=== PATIENT | female | born 1965 | race Native Hawaiian/Other Pacific Islander ===

== ENCOUNTER 2017-01-29 19:17 | Emergency (ER) | payer OTHER ==
--- NOTE | 2017-01-29 19:23 | C.PDOC ---
History Of Present Illness Patient presents to the ED with complaints of severe left lateral ankle and foot pain after falling 2-3 hours prior preparing to go to work. Patient describes pain as sharp and stabbing, she denies any LOC, head trauma, or any other complaints at this time. Time Seen by Provider: 01/29/17 19:22 History Per: Patient History/Exam Limitations: no limitations Onset/Duration Of Symptoms: Hrs Current Symptoms Are (Timing): Still Present Severity: Mild Pain Scale Rating Of: 4 Recent travel outside of the [place]: No Additional History Per: Patient - Ankle/Foot Description Of Injury: Fell Currently Unable To: Bear Weight Alleviating Factor(s): Ice Therapy, Elevation, OTC Pain Medication Past Medical History Reviewed: Historical Data, Nursing Documentation, Vital Signs Vital Signs: Last Vital Signs Temp 98.4 F 01/29/17 19:29 Pulse 80 01/29/17 19:29 Resp 20 01/29/17 19:29 BP 134/72 01/29/17 19:29 Pulse Ox 96 01/29/17 19:29 - [facility] TETANUS TOXOID ADMINIST (08/02/13) Family History: States: Unknown Family Hx - Social History Hx Tobacco Use: No Hx Alcohol Use: No Hx Substance Use: No - Immunization History Hx Tetanus Toxoid Vaccination: No Hx Influenza Vaccination: No Hx Pneumococcal Vaccination: No Review Of Systems Constitutional: Negative for: Fever, Chills, Sweats Cardiovascular: Negative for: Chest Pain Respiratory: Negative for: Cough, Shortness of Breath Gastrointestinal: Negative for: Nausea, Vomiting, Abdominal Pain, Diarrhea Musculoskeletal: Positive for: Foot Pain (left ankle and foot ) Physical Exam - Physical Exam Appears: Non-toxic, No Acute Distress Skin: Warm, Dry Neck: Normal ROM, Supple Cardiovascular: Rhythm Regular Respiratory: No Accessory Muscle Use, No Rales, No Rhonchi, No Stridor, No Wheezing Gastrointestinal/Abdominal: Soft, No Tenderness, No Distention, No Guarding, No Rebound Extremity: No Tenderness, Capillary Refill (good capillary refill ), Other ( underable to bear weight, left lateral and medial ankle pain; able to dorsiflex the foot ) Pulses: Left Dorsalis Pedis: Normal, Right Dorsalis Pedis: Normal DTR: Ankle (R): 2+, Ankle (L): 2+ Neurological/Psych: Oriented x3 ED Course And Treatment O2 Sat by Pulse Oximetry: 96 Pulse Ox Interpretation: Normal Progress Note: toradol, ct scan. i've placed an air cast on left foot. pt tolerated the procedure well. good capilary refill , moves all her toes Reevaluation Time: 21:06 Reassessment Condition: Improved Disposition Counseled Patient/Family Regarding: Studies Performed, Diagnosis, Need For Followup, Rx Given - Disposition Disposition: HOME/ ROUTINE Disposition Time: 19:23 Condition: FAIR Forms: Work Excuse - Clinical Impression Clinical Impression: Fall (on) (from) other stairs and steps, initial encounter, Left ankle sprain - Scribe Statement The provider has reviewed the documentation as recorded by the Scribe Jennifer Becerril All medical record entries made by the Matthewibe were at my direction and personally dictated by me. I have reviewed the chart and agree that the record accurately reflects my personal performance of the history, physical exam, medical decision making, and the department course for this patient. I have also personally directed, reviewed, and agree with the discharge instructions and disposition.
[2017-01-29 19:27] VITALS: BMI 23.9
[2017-01-29 19:30] VITALS: TEMP 98.4
[2017-01-29 21:07] VITALS: BP 136/86; PULSE 77; RESP 18
[2017-01-29 21:09] VITALS: O2SAT 96
--- NOTE | 2017-01-30 15:12 | CT ---
CT left foot History: Lateral malleolar pain. Comparison: None available. Technique: Axial computed tomographic images of the left foot was performed without intravenous contrast. Subsequently, sagittal and coronal reformatted images were obtained. This CT exam was performed using one or more of the following dose reduction techniques: Automated exposure control, adjustment of the mA and/or kV according to patient size, and/or use of iterative reconstruction technique. Findings: No evidence of acute displaced fracture dislocation. 5 x 3 millimeter bone island in the calcaneus. Prominent plantar and dorsal calcaneal spurring noted both at the insertion of the Achilles tendon and plantar fascia. Small well corticated bone fragment adjacent to the lateral aspect of the talus which may represent a soft tissue dystrophic calcification versus accessory ossicle versus additional etiology. Clinical correlation. Bipartite medial sesamoid bone. Mild hallux valgus deformity. Impression: Prominent plantar and dorsal calcaneal spurring. Small well corticated bone fragment adjacent to the lateral aspect of the talus which may represent a soft tissue dystrophic calcification versus accessory ossicle versus additional etiology. Clinical correlation. Additional findings as above. If pain persists, consider MRI. These findings were preliminarily reported at 8:49 p.m. on 01/29/[address] Barney Felipe from [facility].
== END 2017-01-29 21:15 | disposition home or self-care (01) ==
LOC: C.ER 19:17
DX: S93.402A Sprain of unspecified ligament of left ankle, initial encounter (principal); W19.XXXA Unspecified fall, initial encounter
CPT/HCPCS: 73700; 96372; 99284; J1885

== ENCOUNTER 2018-11-16 07:28 | Outpatient (CLI) | payer OTHER | END 2018-11-16 07:29 | disposition home or self-care (01) | LOC: C.LAB 07:28 | DX: E78.2 Mixed hyperlipidemia (principal) ==

== ENCOUNTER 2018-11-23 07:48 | Outpatient (CLI) | payer OTHER | END 2018-11-23 07:49 | disposition home or self-care (01) | LOC: C.MAMMO 07:49 ==